=== PATIENT | female | born 1985 | race Caucasian/White ===

== ENCOUNTER 2024-07-15 00:46 | Day surgery (SDC) | payer OTHER, SELFPAY ==
[2024-07-03 15:38] VITALS: BMI 20.9
--- OUTSIDE RECORDS SUMMARY | 2024-07-15 00:49 | XMS_ITS | Clinical Summary ---
Author Organization [facility] Address [address] [place] [address] Care Team Providers Care Machine Tool Designer Name Role Phone Unavailable Primary Care Provider Unavailabl e Source Comments [facility],non-owned Affiliates and Associated Physician Practices is amultiple site organization consisting of ambulatory clinics and hospital sitesin [place], [place] and [place]. This disclosure is being madepursuant to the Care Everywhere program and may not contain all information available regarding this patient. 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 Gender Identity Not on file Sexual Orientation Not on file Plan of Treatment Health Maintenance Due Date Last Done Comments PAP SMEAR 1985 HIV SCREENING 2000 HEPATITIS C SCREENING 06/16/2003 DTAP/TDAP/TD VACCINES (1 - Tdap) 2004 HEPATITIS B VACCINE (1 of 3 - 19+ 3-dose series) 2004 COVID-19 VACCINE ( - 2023-2 5 season) 2023 DEPRESSION SCREENING 03/20/2024 INFLUENZA VACCINE (Season Ended) 2024 ZOSTER VACCINE (1 of 2) 06/21/2035 HIB VACCINE Aged Out No longer eligi ble based on patient's age to complete this topic HPV VACCINE Aged Out No longer eligi ble based on patient's age to complete this topic MENINGOCOCCAL (Group B) VACC INE SHARED DECISION-MAKING Aged Out No longer eligibl e based on patient's age to complete this topic MENINGOCOCCAL GROUPS A/C/Y/W VACCINE Aged Out No longer eligible b ased on patient's age to complete this topic PNEUMOCOCCAL VACCINE Aged Out No long er eligible based on patient's age to complete this topic Procedures Procedure Name Priority Date/Time Associated Diagnosis Comments DERMATOPATHOLOGY Routine 05/30/2024 10:5 2 AM CDT from Last 3 Months Results * DERMATOPATHOLOGY (05/30/2024 10:52 AM CDT) Case Report Dermatopathology Report Case: [id number] Authorizing Provider: Lizette Schroeder MD Collected: 05/30/2024 10:52 AM Ordering Location: [facility] - Received: 05/31/2024 07:08 AM DermPath Lab Pathologist: Leslie Wilson MD Specimen: Skin, right clavicle 2:48 PM CDT DERMATOPATHOLOGY LABORATORY Final Diagnosis Specimen A. SKIN, right clavicle: SEBORRHEIC KERATOSIS, IRRITATED AND INFLAMED (L82.0) 2:48 PM CDT DERMATOPATHOLOGY LABORATORY Clinical History Nevus R/O Atypia 2:48 PM CDT DERMATOPATHOLOGY LABORATORY Gross Description Specimen A: Received is one formalin filled container labeled with the patient's name and designated right clavicle. The specimen consists of a shave biopsy measuring 5x5x1 mm. Jar 0. 2:48 PM CDT DERMATOPATHOLOGY LABORATORY Microscopic Description Specimen A. SKIN, right clavicle: Sections show acanthosis, papillomatosis, hyperkeratosis, and squamous eddies. There is a lymphohistiocytic infiltrate within the papillary dermis. Mib-1 stain highlights proliferating keratinocytes confined to the basilar epidermis as well as scattered inflammatory cells. 2:48 PM CDT DERMATOPATHOLOGY LABORATORY Disclaimer An external and internal positive and negative controls are appropriate for the histochemical, immunohistochemical and immunofluorescence stain(s) in this case (if any), except where stated explicitly. The performance characteristics of the stain(s) cited in this report were developed and its performance characteristic determined by the Dermatopathology Laboratory at [facility], directed by Dr. Gertrudis Teixeira. These tests need not be, and therefore are not, approved by the [place] Food and Drug Administration. The tests are used for clinical purposes. Billing Codes Specimen Charges Stain Charges 75878 1 03700 1 5 2:48 PM CDT DERMATOPATHOLOGY LABORATORY Embedded Images 5 2:48 PM CDT DERMATOPATHOLOGY LABORATORY Pathology/Cytolo gy TISSUE SPECIMEN FROM SKIN / Unknown 05/30/2024 10:52 AM CDT 05/31/2024 7:08 AM CDT Lizette Schroeder MD LAB - PATHOLOGY/CYTOLOGY OR DERABLES Final Result DERMATOPATHOLOGY LABORATORY [facility] - Department of Dermatology [address], [address] [phone] from Last 3 [place] [address] [place] [address]
--- OUTSIDE RECORDS SUMMARY | 2024-07-15 00:49 | XMS_ITS | Referral Summary ---
Author Organization [facility] Address [address] [place] [address] Care Team Providers Care Medical Research Associate Name Role Phone Sri Varghese NP Primary Care Provider [phone] Allergies No known active allergies Medications HYDROcodone-alix taminophen (NORCO) 5-325 mg per tabletIndicatio ns:Pain Take 1-2 tablets by mouth every 4 (four) hours as needed for pain Earliest Fill Date: 05/19/17. 20 tablet 8 Active Additional Information Patient not taking.Reported on 07/01/2023 valACYclovir (VALTREX) 500 mg tablet Take 500 mg by mouth daily 2 Active ciclopirox (LOPROX) 0.77 % cream APPLY TOPICALLY TO THE AFFECTED AREA TWICE DAILY 2 Active benzonatate (TESSALON) 200 mg capsuleIndicati ons:Bronchitis Take 1 capsule (200 mg total) by mouth 3 (three) times a day as needed for cough 30 capsule 4 Active albuterol HFA (PROVENTIL HFA,VENTOLIN HFA,PROAIR HFA) 90 mcg/actuation inhalerIndicati ons:Bronchitis Inhale 2 puffs every 6 (six) hours as needed for wheezing or shortness of breath 1 each 4 Active methylPREDNISol one (Medrol, Hilton,) 4 mg DosepackIndicat ions:Bronchitis follow package directions 1 packet 4 Active Active Problems Problem Noted Date Diagnosed Date 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 Overview (05/03/2017): Added automatically from request for surgery [id number] Voice hoarseness 05/03/2017 Overview (05/03/2017): Added automatically from request for surgery [id number] Social History Tobacco Use Types Packs/Day Years Used Date Smoking Tobacco: Never Smokeless Tobacco: Never Tobacco Cessation:Counseling Given: Not Answered Alcohol Use Standard Drinks/Week Comments No 0 (1 standard drink = 0.6 oz pur e alcohol) Comments No Sex and Gender Information Value Date Recorded Sex Assigned at Not on file 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 Gender Identity Not on file Sexual Orientation Not on file Last Filed Vital Signs Vital Sign Reading Time Taken Comments Blood Pressure 94/62 07/01/2023 10:21 AM CDT Pulse 62 07/01/2023 10:21 AM CDT Temperature 36.7 C (98.1 F) 07/01/2023 10:21 AM CDT Respiratory Rate 16 07/01/2023 10:2 1 AM CDT Oxygen Saturation 100% 07/01/2023 10: 21 AM CDT Inhaled Oxygen Concentration - - Weight 49.8 kg (109 lb 11.2 oz) 024 10:21 AM CDT Height 160 cm (5' 2.99 ) 07/01/2023 10: 21 AM CDT Body Mass Index 19.44 07/01/2023 10:21 AM CDT Plan of Treatment Not on file Insurance [employer] OOS [employer] O[employer] Member Subscriber Plan / Payer (Ef fective 2020-Present) Name:Rachell Burleson Relation to Subscriber:Spouse Name:ALISTAIR BURLESON Date of :1985 (Home) Address: [address] [place] [address] Payer ID:[id number] (NAIC) Type:BC ALLIANCE Address: [facility] [address] [place] [id number] Care Teams Medical Research Associate Relationship Specialty Start Date End Date Sri Varghese NP [address] [facility] [address] [address] PCP - General Cardiovascular Disease 07/01/23
--- OUTSIDE RECORDS SUMMARY | 2024-07-15 00:49 | XMS_ITS | Encounter Summary ---
Author Organization [facility] Healthcare Address [address] [place] [address] Care Team Providers Care Tin Dipper Name Role Phone Jesus Bardales MD Primary Care Provider [phone] Janine Cleary CONSULTING SOLUTION MANAGER Unavailable Unavaila ble Leidy, Physician Primary Care Provider [phone] Sri Varghese NP Primary Care Provider [phone] Encounter Details Date Type Department Care Team (Late st Contact Info) Description 01/30/2018 Documentation [facility] Speech Therapy [facility] [place] [place] [address] Janine Cleary, HANNA Social History Tobacco Use Types Packs/Day Years Used Date Smoking Tobacco: Never Smokeless Tobacco: Never Alcohol Use Standard Drinks/Week Comments No 0 (1 standard drink = 0.6 oz pur e alcohol) Comments No Sex and Gender Information Value Date Recorded Sex Assigned at Not on file Legal Sex Female 2:39 PM SENIOR TELLER Gender Identity Not on file Sexual Orientation Not on file documented as of this encounter Plan of Treatment Not on file documented as of this encounter Visit Diagnoses Not on filedocumented in this encounter Additional Health Concerns Infection Onset Date Last Indicated Resolved Time COVID: Suspected 01/26/2022 01/26/2022 01/26/2022 2:55 PM SENIOR TELLER documented as of this encounter Care Teams Tin Dipper Relationship Specialty Start Date End Date Jesus Bardales MD [address] [place] [address] PCP - General Family Medicine 03/28/17 01/25/22 Leidy, Physician PCP - General 01/26/22 06/30/23 Sri Varghese, MARKET SPECIALIST [facility] [address] [address] PCP - General Cardiovascular Disease 07/01/23 Janine Cleary, HANNA Speech Language Pathologist Speech Therapy 11/02/17 01/25/22 documented as of this encounter
--- OUTSIDE RECORDS SUMMARY | 2024-07-15 00:49 | XMS_ITS | Encounter Summary ---
Author Organization [facility] Address [address] [place] [address] Care Team Providers Care Chief Deputy Sheriff Name Role Phone Unavailable Primary Care Provider Unavailabl e Encounter Details Date Type Department Care Team (Late st Contact Info) Description 04/12/2019 Lab Requisition [facility] DermPath Lab [address] [facility] [place] [phone] Mallorie Whitney DO [address] [facility] [address] [place] [address] Social History Tobacco Use Types Packs/Day Years Used Date Smoking Tobacco: Never Assessed Comments Unknown Sex and Gender Information Value Date Recorded Sex Assigned at Not on file Legal Sex Female 11:[address] DRIVER Gender Identity Not on file Sexual Orientation Not on file documented as of this encounter Plan of Treatment Not on file documented as of this encounter Procedures Procedure Name Priority Date/Time Associated Diagnosis Comments DERMATOPATHOLOGY Routine 04/11/2019 12:[address] DRIVER documented in this encounter Results * DERMATOPATHOLOGY (04/11/2019 12:[address] AWAY DRIVER) Case Report Dermatopathology Report Case: [id number] Authorizing Provider: Mallorie Whitney DO Collected: 04/11/2019 12:00 AM Ordering Location: [facility] DermPath Lab Received: 04/12/2019 10:52 AM Pathologist: Leslie Wilson MD Specimens: A) - Skin, left sikh B) - Skin, right back 0 1:[address] DRIVER DERMATOPATHOLOGY LABORATORY Final Diagnosis Specimen A. 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 SKIN, right back: LENTIGINOUS MELANOCYTIC NEVUS, COMPOUND TYPE, IRRITATED (COMPOUND MELANOCYTIC NEVUS WITH ARCHITECTURAL DISORDER) (D22.5) 0 1:[address] DRIVER DERMATOPATHOLOGY LABORATORY Clinical History A: R/O MM. B: Nevus R/O atypia. 0 1:09 PM [facility] DERMATOPATHOLOGY LABORATORY Gross Description Specimen A: Received is one formalin filled container labeled with the patient's name and designated left sikh. The specimen consists of a shave measuring [id number]. Jar 0. Specimen B: Received is one formalin filled container labeled with the patient's name and designated right back. The specimen consists of a shave measuring [id number]. Jar 0. 0 1:09 PM [facility] DERMATOPATHOLOGY LABORATORY Microscopic Description Specimen A. SKIN, left sikh: There are nests of melanocytes at the dermal-epidermal junction and within the dermis. Some melanocytes are splayed between collagen bundles and are localized around adnexal structures. Specimen B. SKIN, right back: This is a compound nevus. There is melanin pigment in the stratum corneum. There is architectural disorder characterized by a lentiginous proliferation of melanocytes between irregular nevus nests of cells along the dermal epidermal junction. There is underlying fibroplasia of the papillary dermis. The intradermal component is bland in appearance and matures with depth. (Compound Eulalio's Nevus or Compound Dysplastic Nevus) 0 1:09 PM [facility] DERMATOPATHOLOGY LABORATORY Disclaimer An external and internal positive and negative controls are appropriate for the histochemical, immunohistochemical and immunofluorescence stain(s) in this case (if any), except where stated explicitly. The performance characteristics of the stain(s) cited in this report were developed and its performance characteristic determined by the Dermatopathology Laboratory at [facility], directed by Dr. Gertrudis Teixeira. These tests need not be, and therefore are not, approved by the [place] Food and Drug Administration. The tests are used for clinical purposes. Billing Codes Specimen Charges Stain Charges 49152 93296 1 1 0 1:09 PM [facility] DERMATOPATHOLOGY LABORATORY Embedded Images 0 1:09 PM [facility] DERMATOPATHOLOGY LABORATORY Pathology/Cytology TISSUE SPECIMEN FROM SKIN / Unknown 04/11/2019 04/12/2019 10:52 AM [facility] Miscellaneous samples (specimen) TISSUE SPECIMEN FROM SKIN / Unknown 04/11/2019 04/12/2019 10:[address] us Mallorie Whitney DO LAB - PATHOLOGY/CYTOLOGY ORDERABLES Final Result DERMATOPATHOLOGY LABORATORY [facility] - Department of Dermatology [address] [place] [address], 5th Floor Lab [address] [phone] documented in this encounter Visit Diagnoses Not on filedocumented in this encounter
--- OUTSIDE RECORDS SUMMARY | 2024-07-15 00:49 | XMS_ITS | Encounter Summary ---
Author Organization [facility] Address [address] [place] [address] Care Team Providers Care Sustainability Analyst Name Role Phone Unavailable Primary Care Provider Unavailabl e Encounter Details Date Type Department Care Team (Late st Contact Info) Description 05/30/2024 Lab Requisition [facility] - DermPath Lab [address] [facility] [place] [address] Lizette Schroeder MD [address] [facility] [address] [place] [address] Social History Tobacco Use Types Packs/Day Years Used Date Smoking Tobacco: Never Assessed Comments Unknown Sex and Gender Information Value Date Recorded Sex Assigned at Not on file 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 Gender Identity Not on file Sexual Orientation Not on file documented as of this encounter Plan of Treatment Not on file documented as of this encounter Procedures Procedure Name Priority Date/Time Associated Diagnosis Comments DERMATOPATHOLOGY Routine 05/30/2024 10:5 2 AM CDT documented in this encounter Results * DERMATOPATHOLOGY (05/30/2024 10:52 AM CDT) Case Report Dermatopathology Report Case: [id number] Authorizing Provider: Lizette Schroeder MD Collected: 05/30/2024 10:52 AM Ordering Location: [facility] - Received: 05/31/2024 07:08 AM DermPath Lab [...] characteristic determined by the Dermatopathology Laboratory at [facility], directed by Dr. Gertrudis Teixeira. These tests need not be, and therefore are not, approved by the [place] Food and Drug Administration. The tests are used for clinical purposes. Billing Codes Specimen Charges Stain Charges 22077 1 82434 1 2:48 PM CDT DERMATOPATHOLOGY LABORATORY Embedded Images 2:48 PM CDT DERMATOPATHOLOGY LABORATORY Pathology/Cytolo gy TISSUE SPECIMEN FROM SKIN / Unknown 05/30/2024 10:52 AM CDT 05/31/2024 7:08 AM CDT us Lizette Schroeder MD LAB - PATHOLOGY/CYTOLOGY OR DERABLES Final Result DERMATOPATHOLOGY LABORATORY [facility] - Department of Dermatology [address], [address] [phone] documented in this encounter Visit Diagnoses Not on filedocumented in this encounter
--- OUTSIDE RECORDS SUMMARY | 2024-07-15 00:49 | XMS_ITS | Clinical Summary ---
Author Organization [facility] Address [address] [facility] [place] [place] [address] Care Team Providers Care Ceiling Installer Name Role Phone Sri Varghese NP Primary Care Provider Allergies No known active allergies Medications HYDROcodone-alix [...] (05/03/2017): Added automatically from request for surgery [id number] Voice hoarseness 05/03/2017 Overview (05/03/2017): Added automatically from request for surgery [id number] Surgical History Surgery Date Site/Laterality Comments WISDOM TOOTH EXTRACTION LARYNGOSCOPY with left vocal cord nodulectomy; per dr beauchamp Medical History Medical History Date Comments Vocal cord nodule Family History Medical History Relation Name Comments Coronary artery disease Father Stroke Maternal Grandfather No Known Problems Mother Coronary artery disease Paternal Grandfather Relation Name Status Comments Father Maternal Grandfather Mother Paternal Grandfather Social History Tobacco Use Types Packs/Day Years Used Date Smoking Tobacco: Never Smokeless Tobacco: Never Tobacco Cessation:Counseling Given: Not Answered Alcohol Use Standard Drinks/Week Comments No 0 (1 standard drink = 0.6 oz pur e alcohol) Comments No Sex and Gender Information Value Date Recorded Sex Assigned at Not on file 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 Gender Identity Not on file Sexual Orientation Not on file Obstetrics History Last Filed Vital Signs Vital Sign Reading [...] 07/01/2023 10:21 AM CDT Plan of Treatment Health Maintenance Due Date Last Done Comments Cervical Cancer Screening 1985 Depression Screening 1985 Hepatitis C Screening 1985 DTaP/Tdap/Td Vaccine (1 - Tdap) 1996 Varicella Vaccines (1 of 2 - 13+ 2-dose series) 1998 Hepatitis B Screening 06/21/2003 Regular Well Visit/Exam 18-64 06/21/2003 Covid-19 Vaccine ( - 2023-2 5 season) 2023 11/01/2020, 10/10/2020 Influenza Vaccine (Season Ended) 2024 HPV Vaccines Aged Out No longer eligi ble based on patient's age to complete this topic Pneumococcal vaccine <65 Aged Out No longer eligible based on patient's age to complete this topic Insurance [employer] OOS Care Teams Ceiling Installer Relationship Specialty Start Date End Date Sri Varghese NP [address] [place] [address] [place] [address] PCP - General Cardiovascular Disease 07/01/23
[2024-07-15 11:06] VITALS: BP 107/83; PULSE 88; RESP 18; TEMP 36.7; O2SAT 88
[2024-07-15] MEDS: LACTATED RINGERS 1,000 ML 150 ML IV CONT (11:14)
--- NOTE | 2024-07-15 11:59 | PM.HPGS ---
History of Present Illness History of Present Illness Consent: Risks, benefits, and alternatives have been discussed and questions answered. Patient agrees to proceed with procedure. Chief complaint: Hemorrhage of anus and rectum Narrative: Rachell Burleson is a 39 year old female here for first colonoscopy, few episodes of blood after wiping Review of Systems Review of Systems: All systems reviewed & are unremarkable except as noted in HPI and below PMFSH Past Medical History Medical History IUD (intrauterine device) in place Family History Family History Mother Diabetes mellitus Multiple sclerosis Father History of right heart catheterization (RHC) Thyroid disorder Sibling Multiple sclerosis Grandparent Heart disease Diabetes mellitus Cerebrovascular accident Social History Social History Smoking status: Never smoker Alcohol intake: never Substance use: never Substance use type: does not use Lack of Transportation: No Lack of Food: Never True Current Housing: I Have Housing Concerned About Future Housing: No Difficulty Paying Gas/Electric Bills: No Difficulty Paying for Meds: No Currently Unemployed: No Education: Trade/Vocational Certificate Difficulty w/ Childcare or Family Care: No Living arrangements: with family Spiritual care concerns: No Meds Home Medications and Allergies Home Medications ?Medication ?Instructions ?Recorded ?Confirmed ?Type No Home Medications 07/04/24 07/04/24 History Allergies Allergy/AdvReac Type Severity Reaction Status Date / Time No Known Allergies Allergy Verified 07/15/24 11:05 Vital Signs Vital Signs - 24 hr 07/15/24 11:06 Temperature 98.0 F Pulse Rate 88 Respiratory Rate 18 Blood Pressure 107/83 Pulse Oximetry 88 L Oxygen Delivery Room Air Exam Const: General: comfortable and no acute distress HENMT: Face/Nose/Sinus: Normal nares present Eyes: General: appearance normal, both eyes and all related structures Neck: Neck: no JVD Resp: Auscultation: clear to auscultation bilaterally Cardio: Rate: regular rate Rhythm: regular rhythm GI: Inspection: non-distended GI Palp: Yes Soft to palpation Skin: General skin exam: normal color Neuro: General: gait normal Speech: normal speech Extrem: General: normal to inspection Psych: Mental Status: mental status grossly normal Assessment and Plan Assessment and plan (1) Bright red rectal bleeding: Code(s): K62.5 - Hemorrhage of anus and rectum Status: Acute Assessment and Plan: colonoscopy
--- NOTE | 2024-07-15 12:05 | P.PNAN_ITS ---
Anes - Initial Pre Proc Eval Procedure: Operation Date: 07/15/24 12:30 Proposed Procedures p Colonoscopy - Emmanuel Soriano MD Date/Time: 07/15/24 12:05 Surgeon: Emmanuel Soriano MD Pre Op Diagnosis: Hemorrhage of anus and rectum Patient Data Age: 39 Gender: F Height: 1.6 m Weight: 49 kg Last Vital Signs Temp 98.0 F 07/15/24 11:06 Pulse 88 07/15/24 11:06 Resp 18 07/15/24 11:06 BP 107/83 07/15/24 11:06 Pulse Ox 88 L 07/15/24 11:06 O2 Del Method Room Air 07/15/24 11:06 Allergies Allergy/AdvReac Type Severity Reaction Status Date / Time No Known Allergies Allergy Verified 07/15/24 11:05 Home Medications ?Medication ?Instructions ?Recorded ?Confirmed ?Type No Home Medications 07/04/24 07/04/24 History Patient hx anesthesia problems: none Family hx anesthesia problems: none Results Review: All pre-operative results and documents have been reviewed as part of the pre- operative evaluation. [facility] Past Medical History Medical History IUD (intrauterine device) in place Family History Family History Mother Diabetes mellitus Multiple sclerosis Father History of right heart catheterization (RHC) Thyroid disorder Sibling Multiple sclerosis Grandparent Heart disease Diabetes mellitus Cerebrovascular accident Social History Social History Smoking status: Never smoker Alcohol intake: never Substance use: never Substance use type: does not use Lack of Transportation: No Lack of Food: Never True Current Housing: I Have Housing Concerned About Future Housing: No Difficulty Paying Gas/Electric Bills: No Difficulty Paying for Meds: No Currently Unemployed: No Education: Trade/Vocational Certificate Difficulty w/ Childcare or Family Care: No Living arrangements: with family Spiritual care concerns: No Anes - Eval Final PreProcedure Day of Procedure 07/15/24 12:05 Patient weight: thin Lungs: normal air movement Airway: Mallampati scale class 1 Neurological: alert and oriented Last oral intake: >/= 8 hours ASA classification: I Emergent: no Anesthetic plan: proceed Anesthesia type and monitoring: general GIVS and standard monitoring Results Review: All pre-operative results and documents have been reviewed as part of the pre- operative evaluation. Healthy. Informed Consent: The patient's anesthetic plan and its attendant risks and benefits were discu ssed with the patient/family/POA. Questions were solicited and answers provided to the satisfaction of the patient/family/POA.
[2024-07-15 12:22] VITALS: BP 96/47; PULSE 78; RESP 15; O2SAT 100
[2024-07-15 12:32] VITALS: BP 105/63; PULSE 72; RESP 21; O2SAT 100
[2024-07-15 12:42] VITALS: BP 102/69; PULSE 75; RESP 23; O2SAT 100
== END 2024-07-15 12:55 | disposition home or self-care (01) ==
PROVIDERS: PCP Clinical Nurse Specialist; Referring Provider Clinical Nurse Specialist; Visit Provider Internal Medicine Gastroenterology
PROC: 0DJD8ZZ Inspection of Lower Intestinal Tract, Via Natural or Artificial Opening Endoscopic (ICD-10-PCS; CPT 45378; principal; 2024-07-15 12:30)
DX: K92.1 Melena (principal); K64.8 Other hemorrhoids
CPT/HCPCS: 45378; J2003; J2704; J7120